=== PATIENT | male | born 1985 | race Caucasian/White ===

== ENCOUNTER 2025-04-29 18:42 | Emergency (ER) | payer OTHER ==
--- NOTE | 2025-04-29 19:01 | Physician Documentation ---
History of Present Illness ~ Chief Complaint: Laceration Stated Complaint: L FINGER LAC Time Seen by MD: 19:28 OK to notify your PCP?: Yes Source: patient Mode of Arrival: POV Exam Limitations: no limitations HPI Patient presents after sustaining a laceration to his finger with table saw just prior to arrival. Not up-to-date on tetanus. Medication Reconciliation Allergies: Coded Allergies: No Known Allergies (Unverified , 04/29/25) Scheduled Cephalexin*Monohydrate* (Keflex*), 1 CAP PO Q12H Review of Systems ROS The systems negative except documented in HPI. Physical Exam Vital Signs: RN Vital Signs have been reviewed: Yes, Temperature: 98.6, Source: Temporal, Heart Rate: 86, Respiratory Rate: 15, BP: 168/98, Pulse Oximetry: 97 Pulse Oximetry Reflects: adequate oxygenation Physical Exam General: Awake, alert, oriented. No apparent distress Chest: Normal shape and size. No accessory muscle use. Extremities: lac. noted to the left index finger. His nail is lacerated. Neurologic: Alert and oriented x4. Nonfocal Psychiatric: Normal mood and affect. Skin: Normal color. Warm and dry. Procedures Laceration/Wound Repair Laceration : Anesthesia: Lidocaine Prep: betadine, irrigated by nurse, irrigated by physician Irrigated w/ Saline (mls): 60 Debrided: minimal Undermining: none Repaired: skin Wound Repaired With: Dermabond Dressing Applied: simple Splint Applied?: No Procedure Note Finger block with 5 ML lidocaine. Wound was irrigated and was evaluated. No need for sutures or nail bed repair identified. Dermabond applied. Progress Results/Orders Results/Orders Orders - JILL GONZALEZ [employer] Laceration/I&D Tray Set Up (04/29/25 19:33) Completed Orders - JILL GONZALEZ [employer] Tetanus/Pertuss/Diph Acell/Pf (Boostrix (04/29/25 19:35) Lidocaine 1% 30ml Vial (Xylocaine 1% Via (04/29/25 19:35) Cephalexin Capsule (Keflex Capsule) (04/29/25 20:40) Medications Received in ER Medications (Trade) Dose Ordered Sig/[place] Route PRN Reason Start Time Stop Time Status Last Admin Dose Admin (Boostrix vaccine syringe) 0.5 ml ONCE ONCE IMVAC 04/29/25 19:35 04/29/25 19:36 DC 04/29/25 20:15 0.5 ML (Keflex capsule) 500 mg ONCE ONCE PO 04/29/25 20:40 04/29/25 20:41 DC 04/29/25 20:53 500 MG Vital Signs 04/29/25 04/29/25 18:56 21:00 Temp 98.6 98.6 Pulse 86 96 Resp 15 16 B/P (MAP) 168/98 131/81 Pulse Ox 97 100 Medical Decision Making Additional information obtaine: N/A Findings Patient presented with a laceration to his index finger on the left after sustaining an injury with a table saw. Your adequate anesthesia the wound was irrigated for further evaluation. No need for nail bed closure. His x-ray had a small fracture to the distal tip of the finger. Discussed with ortho given open fracture. In agreement with outpatient follow up. Discussed with attending Dr. Rodriguez who had the opportunity to eval the wound. Recommended dermabond and f/up. Given open fracture will be treated with preventative abx. All activity restrictions reviewed. All questions answered. Tetanus shot was updated. Number of consults: 2 Differential Dx:Considerations: Include: Laceration Departure Time of Disposition: 20:22 Disposition: 01 HOME / SELF CARE / HOMELESS Impression: Primary Impression: Laceration Additional Impression: Fracture, finger Qualified Codes: S62.661B - Nondisplaced fracture of distal phalanx of left index finger, initial encounter for open fracture Condition: Stable Discharge Instructions: Laceration Care, Adult, [id number] Additional Instructions: Keep your wound clean and dry. May shower after 48 hours but do not submerge in water. Antibiotics as prescribed. Follow up with primary care provider next week. Referrals: NO PRIMARY CARE PROVIDER (PCP) Prescriptions Cephalexin*Monohydrate* (Keflex*) 500 Mg Capsule 1 CAP PO Q12H for 5 Days, #10 CAP Prov: JILL GONZALEZ NP 04/29/25 Education Educated: Patient Educated regarding: diagnosis, treatment, need for follow up Signature Scribe Signature: No scribe Attestation: The note accurately reflects work and decisions made by me.Jill Gonzalez - MAYCO 04/29/25 22:13 This note was created with the assistance of voice recognition software whereby errors in grammar, syntax, and/or spelling may have occurred despite active proofreading efforts by the author. Please do not hesitate to contact the provider for clarification or for questions regarding the content of this document. AGUSTIN VIVEROS Apr 29, 2025 19:01 JILL GONZALEZ NP Apr 29, 2025 20:01
[2025-04-29] MEDS: LIDOcaine 1% 30ml preserv. free vial IJ ONE (19:44)
--- NOTE | 2025-04-29 19:52 | RADIOLOGY REPORT ---
CLINICAL INDICATION: Injury Left index, pain TECHNIQUE: FINGERSDI FINGER(S) COMPARISON: None FINDINGS/IMPRESSION: : Laceration at the tip of the index finger with associated fracture at the tip of the 2nd distal phalanx.
[2025-04-29] MEDS: TETanus/Pertussis (Acell)/Diphther VAC/PF (Tdap-Adult) 0.5ml syringe IMVAC ONE (20:15)
[2025-04-29] MEDS ORDERED: CEPH-585 PO (20:25)
[2025-04-29 21:00] VITALS: BP 131/81; PULSE 96; RESP 16; TEMP 98.6; O2SAT 100
== END 2025-04-29 21:02 | disposition home or self-care (01) ==
LOC: ER 18:43
DX: S62.631A Displaced fracture of distal phalanx of left index finger, initial encounter for closed fracture (principal); X58.XXXA Exposure to other specified factors, initial encounter; Y93.89 Activity, other specified; Y92.89 Other specified places as the place of occurrence of the external cause; Y99.8 Other external cause status
CPT/HCPCS: 12001; 73140; 90471; 90715; 99283; A6449